=== PATIENT | male | born 1990 | race Caucasian/White ===

== ENCOUNTER 2020-09-04 09:45 | Emergency (ER) | payer OTHER ==
[~2020-09-04] VITALS: Ht 180.3 cm; Wt 122.5 kg
[~2020-09-04 09:45] MED LIST: ALBU90I INH; ALBU90OI INH; AMOCLA875 PO; AZIT250 PO; BLOOD PRESSURE MED; Bactrim Ds Tab1 EACH PO; CODACE30 PO; CYCL10 PO; ERYT.5TO OS; HYDACE5 PO; HYDMOR4 PO; HYDPAM50 PO; IBUP600 PO; IBUP800 PO; MAGCIT300 PO; METO10 PO; NAPR500 PO; Norco 5-325 Ta1 EACH PO; OXYACE5T PO; PENVK500 PO; PRED20 PO; PSEU120ER PO; Prednisone20 MG PO; RXCODACET PO; RXERYTOPTH OP; RXHYDACE PO; RXOXYACE PO; SPACE CHAMBER1 EACH MC; SULTRIDS PO; THYROID MED; TOBR.3OPSO OP; Veetids 500500 MG PO; ZESTORETIC 20-251 EA PO; Zithromax250 MG PO
[2020-09-04] MEDS ORDERED: IBU800 MG PO (10:43)
== END 2020-09-04 10:53 | disposition home or self-care (01) ==
LOC: ER 09:45
DX: U07.1 COVID-19 (principal); I10 Essential (primary) hypertension; Z87.891 Personal history of nicotine dependence
CPT/HCPCS: 99283

== ENCOUNTER 2020-10-10 08:45 | Emergency (ER) | payer OTHER ==
[~2020-10-10] VITALS: Ht 177.8 cm; Wt 122.5 kg
[~2020-10-10 08:45] MED LIST changes: +IBU800 MG PO
[2020-10-10 09:56] LABS: BASOPHILS ABSOLUTE AUTO 0.07 K/mm3 (0.00-0.23); BASOPHILS PERCENT AUTO 1 % (0-2); EOSINOPHILS ABSOLUTE AUTO 0.26 K/mm3 (0.00-0.68); EOSINOPHILS PERCENT AUTO 2 % (0-6); Hematocrit 41.5 % (37.0-53.0); Hemoglobin 14.5 g/dL (13.5-17.5); IMMATURE GRAN ABSOLUTE AUTO 0.04 K/mm3 (0.00-0.10); IMMATURE GRAN PERCENT AUTO 0 % (0-1); LYMPHOCYTES ABSOLUTE AUTO 2.06 K/mm3 (0.84-5.20); LYMPHOCYTES PERCENT AUTO 14 % (21-46); MONOCYTES ABSOLUTE AUTO 1.22 K/mm3 (0.16-1.47); MONOCYTES PERCENT AUTO 8 % (4-13); Mean Corpuscular HGB 32.7 pg (26.0-34.0); Mean Corpuscular HGB Conc 34.9 g/dL (31.5-36.5); Mean Corpuscular Volume 94 fL (80-100); Mean Platelet Volume 9.3 fL (9.1-12.4); NEUTROPHILS PERCENT AUTO 75 % (41-73); Platelet Count 210 K/mm3 (150-400); RDW Coefficient Variation 12.5 % (11.7-14.2); RDW Standard Deviation 43.7 fL (35.1-46.3); Red Blood Cell Count 4.43 M/mm3 (4.30-5.90); White Blood Cell Count 14.65 K/mm3 (4.00-11.30)
[2020-10-10 10:18] LABS: Alanine Aminotransfer (ALT/SGP 24 U/L (12-78); Alk Phos 84 U/L (50-136); Anion Gap 5 mmol/L (6-16); Aspartate Aminotrans (AST/SGOT 18 U/L (12-37); Bilirubin, Total 1.8 mg/dL (0.1-1.0); Blood Urea Nitrogen 23 mg/dL (8-24); Bun/Creatinine Ratio 22.3 (12.0-20.0); CO2, Blood 26 mmol/L (21-32); Calcium, Blood 8.9 mg/dL (8.5-10.1); Chloride, Blood 105 mmol/L (98-108); Creatinine, Blood 1.03 mg/dL (0.60-1.20); Glomerular Filtration Rate >60 (60-); Glucose, Blood 104 mg/dL (70-99); Potassium, Blood 3.2 mmol/L (3.5-5.5); Sodium, Blood 136 mmol/L (136-145)
[2020-10-10] MEDS ORDERED: Cleocin HCl300 MG PO (10:35)
[2020-10-10] MEDS ORDERED: CEPH500 PO (10:35)
== END 2020-10-10 11:20 | disposition home or self-care (01) ==
LOC: ER 08:45
PROVIDERS: Emergency Medicine
DX: L03.115 Cellulitis of right lower limb (principal); I10 Essential (primary) hypertension
CPT/HCPCS: 36415; 80053; 85025; 96365; 96368; 99283-25; J0690

== ENCOUNTER 2021-12-09 15:01 | Inpatient (IN) | payer OTHER ==
[~2021-12-09] VITALS: Ht 180.3 cm; Wt 138.4 kg
[~2021-12-09 15:01] MED LIST changes: +CEPH500 PO; +Cleocin HCl300 MG PO
[2021-12-09 16:04] LABS: BASOPHILS ABSOLUTE AUTO 0.06 K/mm3 (0.00-0.23); BASOPHILS PERCENT AUTO 0 % (0-2); EOSINOPHILS ABSOLUTE AUTO 0.01 K/mm3 (0.00-0.68); EOSINOPHILS PERCENT AUTO 0 % (0-6); Hematocrit 43.5 % (37.0-53.0); Hemoglobin 15.5 g/dL (13.5-17.5); IMMATURE GRAN ABSOLUTE AUTO 0.07 K/mm3 (0.00-0.10); IMMATURE GRAN PERCENT AUTO 0 % (0-1); LYMPHOCYTES ABSOLUTE AUTO 1.94 K/mm3 (0.84-5.20); LYMPHOCYTES PERCENT AUTO 10 % (21-46); MONOCYTES PERCENT AUTO 5 % (4-13); Mean Corpuscular HGB 32.8 pg (26.0-34.0); Mean Corpuscular HGB Conc 35.6 g/dL (31.5-36.5); Mean Corpuscular Volume 92 fL (80-100); Mean Platelet Volume 9.1 fL (9.1-12.4); NEUTROPHILS ABSOLUTE AUTO 16.66 K/mm3 (1.96-9.15); NEUTROPHILS PERCENT AUTO 84 % (41-73); Platelet Count 238 K/mm3 (150-400); RDW Coefficient Variation 13.2 % (11.7-14.2); Red Blood Cell Count 4.73 M/mm3 (4.30-5.90); White Blood Cell Count 19.74 K/mm3 (4.00-11.30)
[2021-12-09 16:40] LABS: Albumin, Blood 3.5 g/dL (3.4-5.0); Albumin/Globulin Ratio 0.9 (0.8-1.8); Bilirubin, Total 2.1 mg/dL (0.1-1.0); Bun/Creatinine Ratio 16.7 (12.0-20.0); Calcium, Blood 9.5 mg/dL (8.5-10.1); Creatinine, Blood 1.26 mg/dL (0.60-1.20); Globulin, Blood 3.8 g/dL (2.2-4.0); Potassium, Blood 3.3 mmol/L (3.5-5.5); Total Protein, Blood 7.3 g/dL (6.4-8.2)
[2021-12-10 02:28] LABS: U Amphetamine Screen DETECTED; U Methamphetamine Screen DETECTED
[2021-12-10 02:29] LABS: U Barbituate Screen Not Detected; U Benzodiazapine Screen Not Detected; U Buprenorphine Screen Not Detected; U Cannabinoids Screen Not Detected; U Cocaine Screen Not Detected; U Methadone Screen Not Detected; U Opiates Screen DETECTED; U Oxycodone Screen Not Detected; U Phencyclidine Screen Not Detected; U Propoxyphene Screen Not Detected
--- NOTE | 2021-12-10 02:51 | NUR ---
ADMIT NOTE: PATIENT ADMITTED TO ROOM 337 FROM ER. ABLE TO TRANSFER SELF TO BED, PATIENT REPORTS DECREASED MOBILITY/WEIGHT BEARING RELATED TO PAIN IN LLE. LLE WITH REDNESS, WARMTH, AND EDEMA. PATIENT MEDICATED FOR C/O PAIN PER RX. PATIENT ORIENTED TO ROOM LAYOUT, CALL SYSTEM, ROUTINES, ETC. IVF INFUSING WITHOUT DIFFICULTY.
--- NOTE | 2021-12-10 05:33 | NUR ---
SHIFT SUMMARY: ABX STARTED PER RX. PATEIENT MEDICATED FOR C/O HEADACHE, NO OTHER C/O AT THIS TIME. PLEASANT AND COOPERATIVE WITH CARE. REPORTS WAS ABLE TO GET SOME SLEEP AFTER PAIN MEDICATIONS EARLIER IN NIGHT. NO FURTHER CHANGES THIS SHIFT. WILL REPORT TO ONCOMING SHIFT.
[2021-12-10 05:34] LABS: BASOPHILS ABSOLUTE AUTO 0.05 K/mm3 (0.00-0.23); BASOPHILS PERCENT AUTO 0 % (0-2); EOSINOPHILS ABSOLUTE AUTO 0.09 K/mm3 (0.00-0.68); EOSINOPHILS PERCENT AUTO 1 % (0-6); Hematocrit 38.9 % (37.0-53.0); Hemoglobin 13.3 g/dL (13.5-17.5); IMMATURE GRAN ABSOLUTE AUTO 0.06 K/mm3 (0.00-0.10); IMMATURE GRAN PERCENT AUTO 0 % (0-1); LYMPHOCYTES ABSOLUTE AUTO 1.86 K/mm3 (0.84-5.20); LYMPHOCYTES PERCENT AUTO 11 % (21-46); MONOCYTES ABSOLUTE AUTO 1.07 K/mm3 (0.16-1.47); MONOCYTES PERCENT AUTO 7 % (4-13); Mean Corpuscular HGB Conc 34.2 g/dL (31.5-36.5); Mean Corpuscular Volume 94 fL (80-100); Mean Platelet Volume 9.3 fL (9.1-12.4); NEUTROPHILS ABSOLUTE AUTO 13.17 K/mm3 (1.96-9.15); NEUTROPHILS PERCENT AUTO 81 % (41-73); Platelet Count 180 K/mm3 (150-400); RDW Coefficient Variation 13.4 % (11.7-14.2); Red Blood Cell Count 4.15 M/mm3 (4.30-5.90)
[2021-12-10 06:11] LABS: Albumin, Blood 2.8 g/dL (3.4-5.0); Albumin/Globulin Ratio 0.8 (0.8-1.8); Bilirubin, Total 1.1 mg/dL (0.1-1.0); Bun/Creatinine Ratio 19.4 (12.0-20.0); Calcium, Blood 8.5 mg/dL (8.5-10.1); Creatinine, Blood 1.08 mg/dL (0.60-1.20); Globulin, Blood 3.4 g/dL (2.2-4.0); Potassium, Blood 3.3 mmol/L (3.5-5.5); Total Protein, Blood 6.2 g/dL (6.4-8.2)
--- NOTE | 2021-12-10 18:04 | NUR ---
SHIFT SUMMARY PT A&O X4 PLEASENT AND COOPERATIVE. UP SBA. CT LLE COPMPLETED THIS EVENING. PT C/O PAIN LLE AND SKY TODAY- MED PER RX WITH GOOD RELIEF. PT REPORTS PAIN IN LLE WORSE WHEN UP. NO ACUTE CHANGES THIS SHIFT. WILL CONTINUE TO MONITOR AND REPORT TO NOC RN.
--- NOTE | 2021-12-10 19:39 | NUR ---
ASSUMPTION OF CARE: REPORT FROM MATEO BLACKMON. PATIENT IN BED WATCHING TV AND ON PHONE. REPORTS PAIN LEVEL "GOOD" AFTER MEDICATIONS EARLIER. LLE ELEVATED ON PILLOWS. REDNESS IMPROVED FROM LAST NIGHT, BELOW LINES OF DEMARCATION, PULSES PALPABLE, TRACE EDEMA NOTED. PATIENT DENIES NUMBNESS OR TINGLING. QUESTIONS REGARDING PLAN OF CARE AND CT RESULTS. ANSWERED TO PATIENT SATISFACTION.
--- NOTE | 2021-12-10 23:39 | NUR ---
UPDATE: PATIENT AROUSES EASILY TO VERBAL STIMULI, REPORTS PAIN CONTINUES TO BE CONTROLLED WELL, DENIES NEED FOR MEDICATIONS AT THIS TIME. IV ABX INFUSING WITHOUT DIFFICULTY. NO C/O OR NEEDS AT THIS TIME.
--- NOTE | 2021-12-11 05:37 | NUR ---
SHIFT SUMMARY: PATIENT CONTIUES TO REPORT GOOD PAIN CONTROL TO LLE. MEDICATED WITH TYLENOL FOR C/O HEADACHE PER RX. IV ABX INFUSING WITHOUT DIFFICULTY AT THIS TIME. PATIENT REQUESTS A SHOWER LATER THIS MORNING. ROOM TEMPERATURE TURNED DOWN AND FAN PROVIDED PER PATIENT REQUEST. PLEASANT AND COOPERATIVE WITH CARE. NO FURTHER CHANGES THIS SHIFT. WILL REPORT TO ONCOMING RN.
[2021-12-11 05:40] LABS: Vancomycin, Trough 8.5 ug/mL (5.0-10.0)
[2021-12-11 07:46] LABS: BASOPHILS ABSOLUTE AUTO 0.04 K/mm3 (0.00-0.23); BASOPHILS PERCENT AUTO 0 % (0-2); EOSINOPHILS ABSOLUTE AUTO 0.25 K/mm3 (0.00-0.68); EOSINOPHILS PERCENT AUTO 2 % (0-6); Hematocrit 36.7 % (37.0-53.0); Hemoglobin 12.5 g/dL (13.5-17.5); IMMATURE GRAN ABSOLUTE AUTO 0.06 K/mm3 (0.00-0.10); IMMATURE GRAN PERCENT AUTO 1 % (0-1); LYMPHOCYTES ABSOLUTE AUTO 1.71 K/mm3 (0.84-5.20); LYMPHOCYTES PERCENT AUTO 16 % (21-46); MONOCYTES ABSOLUTE AUTO 1.04 K/mm3 (0.16-1.47); MONOCYTES PERCENT AUTO 9 % (4-13); Mean Corpuscular HGB 31.9 pg (26.0-34.0); Mean Corpuscular HGB Conc 34.1 g/dL (31.5-36.5); Mean Corpuscular Volume 94 fL (80-100); Mean Platelet Volume 9.2 fL (9.1-12.4); NEUTROPHILS ABSOLUTE AUTO 7.94 K/mm3 (1.96-9.15); NEUTROPHILS PERCENT AUTO 72 % (41-73); Platelet Count 193 K/mm3 (150-400); RDW Coefficient Variation 13.4 % (11.7-14.2); Red Blood Cell Count 3.92 M/mm3 (4.30-5.90); White Blood Cell Count 11.04 K/mm3 (4.00-11.30)
[2021-12-11 07:58] LABS: Bun/Creatinine Ratio 11.9 (12.0-20.0); Calcium, Blood 8.2 mg/dL (8.5-10.1); Creatinine, Blood 0.76 mg/dL (0.60-1.20); Potassium, Blood 3.7 mmol/L (3.5-5.5)
--- NOTE | 2021-12-11 18:23 | NUR ---
SHIFT SUMMARY PT HAS BEEN SLEEPING A MOST OF THE SHIFT. MEDICATED FOR LLE PAIN X2 THIS SHIFT. PT EATING AND DRINKING WELL. URINE CLEAR YELLOW, AND PT HAS HAD GOOD OUTPUT. IV ANTIBIOTICS SCHEDULED. NO ACUTE CHANGES AT THIS TIME. CALL LIGHT IN REACH. WILL CONTINUE TO MONITOR AND REPORT TO ONCOMING RN.
--- NOTE | 2021-12-11 23:39 | NUR ---
Resting with lt leg up on pillows. Evening iv antibotics given. Pt denied need for ultram at this time.
[2021-12-12 06:43] LABS: BASOPHILS ABSOLUTE AUTO 0.04 K/mm3 (0.00-0.23); BASOPHILS PERCENT AUTO 1 % (0-2); EOSINOPHILS ABSOLUTE AUTO 0.41 K/mm3 (0.00-0.68); EOSINOPHILS PERCENT AUTO 5 % (0-6); IMMATURE GRAN ABSOLUTE AUTO 0.05 K/mm3 (0.00-0.10); IMMATURE GRAN PERCENT AUTO 1 % (0-1); LYMPHOCYTES ABSOLUTE AUTO 1.97 K/mm3 (0.84-5.20); LYMPHOCYTES PERCENT AUTO 23 % (21-46); MONOCYTES ABSOLUTE AUTO 0.97 K/mm3 (0.16-1.47); MONOCYTES PERCENT AUTO 11 % (4-13); Mean Corpuscular HGB 31.9 pg (26.0-34.0); Mean Corpuscular HGB Conc 34.2 g/dL (31.5-36.5); Mean Corpuscular Volume 93 fL (80-100); Mean Platelet Volume 9.5 fL (9.1-12.4); NEUTROPHILS ABSOLUTE AUTO 5.25 K/mm3 (1.96-9.15); NEUTROPHILS PERCENT AUTO 60 % (41-73); Platelet Count 237 K/mm3 (150-400); RDW Coefficient Variation 13.3 % (11.7-14.2); Red Blood Cell Count 4.07 M/mm3 (4.30-5.90); White Blood Cell Count 8.69 K/mm3 (4.00-11.30)
[2021-12-12 07:06] LABS: Albumin, Blood 2.5 g/dL (3.4-5.0); Albumin/Globulin Ratio 0.6 (0.8-1.8); Bilirubin, Total 0.6 mg/dL (0.1-1.0); Bun/Creatinine Ratio 14.4 (12.0-20.0); Calcium, Blood 8.4 mg/dL (8.5-10.1); Creatinine, Blood 0.76 mg/dL (0.60-1.20); Potassium, Blood 3.8 mmol/L (3.5-5.5); Total Protein, Blood 6.5 g/dL (6.4-8.2)
--- NOTE | 2021-12-12 07:07 | NUR ---
Jean slept most of night. Iv site at 0600 was leaking and not patient. attempted to restart x1. Ancef not given and Vanco held until trough drawn.
[2021-12-12 07:49] LABS: Vancomycin, Trough 15.7 ug/mL (5.0-10.0)
[2021-12-12] MEDS ORDERED: Acetaminophen650 M1 PO (12:35)
[2021-12-12] MEDS ORDERED: TRAM50 PO (12:36)
[2021-12-12] MEDS ORDERED: VISBIOME 112.51 EACH PO (12:37)
[2021-12-12] MEDS ORDERED: SULFAMETHOXAZO1 EAC1 PO (12:38)
--- NOTE | 2021-12-12 13:00 | NUR ---
DISCHARGE PT DISCHARGED TO HOME. THIS RN EXPLAINED DISCHARGE INSTRUCTIONS AND MEDICATIONS TO PT. HE REPORTS HE UNDERSTANDS. IV REMOVED WITHOUT DIFFICULTY. MEDICATIONS FAXED TO [facility]. PT TRANSFERRED TO PRIVATE VEHICLE VIA WHEELCHAIR. BELONGINGS WITH PT.
== END 2021-12-12 13:00 | disposition home or self-care (01) | DRG 872 ==
LOC: ER 15:01 → ERHOLD 21:22 → MEDS 12-10 02:12
PROVIDERS: Family Medicine; Nurse Practitioner Acute Care; Physician Assistant; ADMIT Family Medicine
DX: A41.9 Sepsis, unspecified organism (principal); L03.116 Cellulitis of left lower limb; N17.9 Acute kidney failure, unspecified; R65.20 Severe sepsis without septic shock; E87.6 Hypokalemia; E03.9 Hypothyroidism, unspecified; Z68.34 Body mass index [BMI] 34.0-34.9, adult; I10 Essential (primary) hypertension; E66.9 Obesity, unspecified; F15.90 Other stimulant use, unspecified, uncomplicated; F11.90 Opioid use, unspecified, uncomplicated; Z90.49 Acquired absence of other specified parts of digestive tract
CPT/HCPCS: 36415; 73701; 80048; 80053; 80202; 83605; 85025; 87040; 96365; 96366; 96375; 99284-25; A9270; J0690; J0696; J1650; J1885; J2270; J3370; J7030; J7050; Q9967

== ENCOUNTER → 2024-05-17 | Outpatient (CLI) | payer OTHER ==
[~2024-05-17] MED LIST changes: +Acetaminophen650 M1 PO; +LOSA50 PO; +SULFAMETHOXAZO1 EAC1 PO; +TRAM50 PO; +VISBIOME 112.51 EACH PO
[2024-05-17 13:05] LABS: BASOPHILS ABSOLUTE AUTO 0.03 K/mm3 (0.00-0.23); BASOPHILS PERCENT AUTO 0 % (0-2); EOSINOPHILS ABSOLUTE AUTO 0.08 K/mm3 (0.00-0.68); EOSINOPHILS PERCENT AUTO 1 % (0-6); Hemoglobin 14.4 g/dL (13.5-17.5); IMMATURE GRAN ABSOLUTE AUTO 0.04 K/mm3 (0.00-0.10); IMMATURE GRAN PERCENT AUTO 0 % (0-1); LYMPHOCYTES ABSOLUTE AUTO 1.91 K/mm3 (0.84-5.20); LYMPHOCYTES PERCENT AUTO 16 % (21-46); MONOCYTES ABSOLUTE AUTO 0.86 K/mm3 (0.16-1.47); MONOCYTES PERCENT AUTO 7 % (4-13); Mean Corpuscular HGB 31.6 pg (26.0-34.0); Mean Corpuscular HGB Conc 34.3 g/dL (31.5-36.5); Mean Corpuscular Volume 92 fL (80-100); Mean Platelet Volume 8.8 fL (9.1-12.4); NEUTROPHILS ABSOLUTE AUTO 9.11 K/mm3 (1.96-9.15); NEUTROPHILS PERCENT AUTO 76 % (41-73); Platelet Count 221 K/mm3 (150-400); RDW Coefficient Variation 13.9 % (11.7-14.2); RDW Standard Deviation 47.4 fL (35.1-46.3); Red Blood Cell Count 4.56 M/mm3 (4.30-5.90); White Blood Cell Count 12.03 K/mm3 (4.00-11.30)
[2024-05-17 13:20] LABS: Albumin, Blood 3.2 g/dL (3.4-5.0); Albumin/Globulin Ratio 0.7 (0.8-1.8); Bilirubin, Total 1.3 mg/dL (0.1-1.0); Bun/Creatinine Ratio 14.2 (12.0-20.0); Creatinine, Blood 1.13 mg/dL (0.60-1.20); Globulin, Blood 4.4 g/dL (2.2-4.0); Total Protein, Blood 7.6 g/dL (6.4-8.2)
== END ==
LOC: LAB 13:00 → LAB SHORT 13:00
PROVIDERS: Family Medicine
DX: I10 Essential (primary) hypertension (principal)
CPT/HCPCS: 80053; 85025

== ENCOUNTER 2024-05-18 13:18 | Emergency (ER) | payer OTHER ==
[~2024-05-18] VITALS: Ht 177.8 cm; Wt 140.6 kg
[~2024-05-18 13:18] MED LIST changes: -LOSA50 PO
[2024-05-18] MEDS ORDERED: LOSA50 PO (13:33)
[2024-05-18] MEDS ORDERED: Ketorolac Tromethamine 15mg Vial IV ONE (14:05)
[2024-05-18 14:33] LABS: BASOPHILS ABSOLUTE AUTO 0.04 K/mm3 (0.00-0.23); BASOPHILS PERCENT AUTO 0 % (0-2); EOSINOPHILS PERCENT AUTO 1 % (0-6); Hematocrit 40.5 % (37.0-53.0); Hemoglobin 14.2 g/dL (13.5-17.5); IMMATURE GRAN ABSOLUTE AUTO 0.04 K/mm3 (0.00-0.10); IMMATURE GRAN PERCENT AUTO 0 % (0-1); LYMPHOCYTES ABSOLUTE AUTO 1.52 K/mm3 (0.84-5.20); LYMPHOCYTES PERCENT AUTO 14 % (21-46); MONOCYTES ABSOLUTE AUTO 0.95 K/mm3 (0.16-1.47); MONOCYTES PERCENT AUTO 9 % (4-13); Mean Corpuscular HGB 32.4 pg (26.0-34.0); Mean Corpuscular HGB Conc 35.1 g/dL (31.5-36.5); Mean Corpuscular Volume 93 fL (80-100); Mean Platelet Volume 8.9 fL (9.1-12.4); NEUTROPHILS ABSOLUTE AUTO 7.96 K/mm3 (1.96-9.15); NEUTROPHILS PERCENT AUTO 75 % (41-73); Platelet Count 210 K/mm3 (150-400); RDW Coefficient Variation 14.1 % (11.7-14.2); RDW Standard Deviation 47.8 fL (35.1-46.3); Red Blood Cell Count 4.38 M/mm3 (4.30-5.90); White Blood Cell Count 10.61 K/mm3 (4.00-11.30)
[2024-05-18 15:11] LABS: Albumin, Blood 2.7 g/dL (3.4-5.0); Albumin/Globulin Ratio 0.6 (0.8-1.8); Bilirubin, Total 0.7 mg/dL (0.1-1.0); Bun/Creatinine Ratio 11.1 (12.0-20.0); Calcium, Blood 8.6 mg/dL (8.5-10.1); Creatinine, Blood 0.81 mg/dL (0.60-1.20); Globulin, Blood 4.6 g/dL (2.2-4.0); Potassium, Blood 3.4 mmol/L (3.5-5.5); Total Protein, Blood 7.3 g/dL (6.4-8.2)
[2024-05-18] MEDS ORDERED: Prochlorperazine Edisylate 10 mg Vial IV ONE (15:20)
[2024-05-18] MEDS ORDERED: DiphenhydrAMINE HCl 50 MG/ML 1ML Vial IV ONE (15:20)
[2024-05-18] MEDS ORDERED: NS 1,000 ML IV SCH (15:20)
[2024-05-18] MEDS ORDERED: Dexamethasone Sod Phos 10 MG/ML 1ML VIAL IV ONE (15:20)
[2024-05-18] MEDS ORDERED: Cephalexin Monohydrate 500 MG Cap PO ONE ×2 (15:35→18:10)
[2024-05-18 15:51] LABS: Source, Urine Clean Catch
[2024-05-18 15:54] LABS: Appearance, Urine Clear (Clear); Bilirubin, Urine Neg (Neg); Blood, Urine 1+ (Neg); Color, Urine Yellow (P-Yellow); Glucose Qualitative, Urine Neg (Neg); Ketones, Urine Neg (Neg); Leukocyte Esterase, Urine Neg (Neg); Nitrite, Urine Neg (Neg); Protein, Urine 2+ (Neg); Urobilinogen, Urine 2+ (Normal)
[2024-05-18 16:00] LABS: Bacteria Rare /hpf; Squamous Epithelial Cells Few /hpf (Few)
[2024-05-18] MEDS ORDERED: Potassium Chloride 20 MEQ TabCR PO ONE (16:30)
[2024-05-18] MEDS ORDERED: Acetaminophen 325 MG TABLET PO ONE (16:45)
[2024-05-18] MEDS ORDERED: Droperidol 5 mg/2 ml Vial IV ONE (16:45)
[2024-05-18] MEDS ORDERED: Haloperidol Lactate Inj. 5 MG/ML Injection IV ONE (17:20)
[2024-05-18] MEDS ORDERED: CEPH500 PO (18:10)
[2024-05-18 18:35] VITALS: BP 169/91
== END 2024-05-18 18:36 | disposition home or self-care (01) ==
LOC: ER 13:18
PROVIDERS: Student in an Organized Health Care Education/Training Program
DX: G43.919 Migraine, unspecified, intractable, without status migrainosus (principal); L03.115 Cellulitis of right lower limb; L03.116 Cellulitis of left lower limb; I10 Essential (primary) hypertension; E03.9 Hypothyroidism, unspecified; Z87.891 Personal history of nicotine dependence; Z79.899 Other long term (current) drug therapy; Z59.89 Other problems related to housing and economic circumstances
CPT/HCPCS: 71046; 80053; 81001; 83735; 85025; 85651; 96361; 96374; 96375; 99284-25; A9270; J0780; J1100; J1200; J1630; J1885; J7030

== ENCOUNTER → 2024-11-13 | Outpatient (CLI) | payer OTHER ==
[~2024-11-13] MED LIST changes: +LOSA50 PO
[2024-11-13 15:15] LABS: BASOPHILS ABSOLUTE AUTO 0.04 K/mm3 (0.00-0.23); BASOPHILS PERCENT AUTO 0 % (0-2); EOSINOPHILS ABSOLUTE AUTO 0.00 K/mm3 (0.00-0.68); EOSINOPHILS PERCENT AUTO 0 % (0-6); Hematocrit 40.4 % (37.0-53.0); Hemoglobin 14.2 g/dL (13.5-17.5); IMMATURE GRAN ABSOLUTE AUTO 0.14 K/mm3 (0.00-0.10); IMMATURE GRAN PERCENT AUTO 1 % (0-1); LYMPHOCYTES ABSOLUTE AUTO 0.75 K/mm3 (0.84-5.20); LYMPHOCYTES PERCENT AUTO 4 % (21-46); MONOCYTES ABSOLUTE AUTO 0.57 K/mm3 (0.16-1.47); MONOCYTES PERCENT AUTO 3 % (4-13); Mean Corpuscular HGB Conc 35.1 g/dL (31.5-36.5); Mean Corpuscular Volume 91 fL (80-100); NEUTROPHILS ABSOLUTE AUTO 17.34 K/mm3 (1.96-9.15); NEUTROPHILS PERCENT AUTO 92 % (41-73); NRBC ABSOLUTE 0.00 K/mm3 (0.00-0.02); NRBC Auto 0.0 /100 WBC (0.0-0.2); Platelet Count 202 K/mm3 (150-400); RDW Coefficient Variation 14.1 % (11.7-14.2); RDW Standard Deviation 47.2 fL (35.1-46.3)
[2024-11-13 15:23] LABS: Alanine Aminotransfer (ALT/SGP 44.0 U/L (12-78); Albumin, Blood 3.6 g/dL (3.4-5.0); Albumin/Globulin Ratio 0.9 (0.8-1.8); Anion Gap 9.0 mmol/L (3-11); Aspartate Aminotrans (AST/SGOT 28.0 U/L (12-37); Bilirubin, Total 2.1 mg/dL (0.1-1.0); Blood Urea Nitrogen 9.0 mg/dL (8-24); CO2, Blood 29.0 mmol/L (21-32); Calcium, Blood 8.6 mg/dL (8.5-10.1); Chloride, Blood 96.0 mmol/L (98-108); Creatinine, Blood 1.03 mg/dL (0.60-1.20); Globulin, Blood 4.1 g/dL (2.2-4.0); Glucose, Blood 107.0 mg/dL (70-99); Potassium, Blood 3.0 mmol/L (3.5-5.5); Sodium, Blood 131.0 mmol/L (136-145); Total Protein, Blood 7.7 g/dL (6.4-8.2)
== END ==
LOC: LAB 15:09 → LAB SHORT 15:09
DX: L03.115 Cellulitis of right lower limb (principal); L03.116 Cellulitis of left lower limb
CPT/HCPCS: 80053; 83880; 85025